=== PATIENT | female | born 1970 | race Caucasian/White ===

== ENCOUNTER → 2016-11-08 | Outpatient (CLI) | payer BC ==
--- NOTE | 2016-11-08 15:17 | WWHP ---
DATE OF SERVICE: 11/08/2016 CHIEF COMPLAINT: The patient is here for her routine gynecologic exam. HPI: This is a 46-year-old G0 with an LMP of 10/04/2016. The patient has been using the NuvaRing this past year and states she has been doing well with this. She forgot to take her NuvaRing out last week and left it in for 4 weeks. She just removed it yesterday. She is without gynecologic complaints. PAST MEDICAL HISTORY: Depression, acne and Raynaud's syndrome. MEDICATIONS: 1. Wellbutrin XR 200 mg b.i.d. 2. Nifedipine ER 30 mg daily. 3. Doxycycline 100 mg 1 daily. 4. NuvaRing as directed. 5. Multivitamin daily. 6. Calcium with vitamin D 1 t.i.d. 7. Vitamin B complex daily. 8. Clindamycin gel topically apply daily. 9. Klaron lotion 10% used daily. ALLERGIES: No known drug allergies. PAST SURGICAL HISTORY: Tonsillectomy at age 13. 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 She has no history of STDs. SOCIAL HISTORY: She denies tobacco, alcohol, and drug use. 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 Family history is unchanged from the 2016 H&P. REVIEW OF SYSTEMS: She has gained about 8 pounds over the last year. She denies respiratory, cardiac, or GI problems. PHYSICAL EXAM: Blood pressure 111/76. Height 5 feet 4 inches. Weight 159 pounds. Temperature 98.7, pulse 87. This a well-developed, well-nourished white female who is alert and oriented x3 in no acute distress. HEENT is within normal limits. NECK: Supple without mass or thyromegaly. CHEST AND LUNGS: Clear to auscultation. HEART: Regular rate and rhythm. Breasts are without mass or discharge. Axillary exam is negative for adenopathy. BACK: Negative for CVA tenderness. ABDOMEN: Soft, nontender, without palpable masses. PELVIC EXAM: Normal external genitalia. Cervix and vagina appear normal. There is no evidence of prolapse. The uterus is midposition, nongravid size and nontender. There are no palpable adnexal masses or tenderness. Rectal exam is negative for mass or tenderness and is negative for occult blood. EXTREMITIES: Nontender. IMPRESSION: A 46-year-old female with normal gynecologic exam doing well with the NuvaRing. PLAN: 1. Pap smear was deferred, since she had a normal one last year. 2. Self breast examination was discussed. 3. Mammogram was recommended and a slip was given to patient for this. 4. She will continue with the NuvaRing and insert her new ring today. 5. She will return in one year.
== END | disposition home or self-care (01) ==
LOC: WWCWWP 11:18
PROVIDERS: ATTEND Obstetrics & Gynecology
DX: Z53.9 Procedure and treatment not carried out, unspecified reason (principal)

== ENCOUNTER → 2017-10-23 | Outpatient (CLI) | payer BC ==
--- NOTE | 2017-10-24 14:13 | MM ---
Reason for exam: screening (asymptomatic). Last mammogram was performed 2 years and 1 month ago. History: Patient is nulliparous. Benign cyst aspiration of both breasts, 2013. Took hormonal contraceptives for 10 years. Physical Findings: A clinical breast exam by your physician is recommended on an annual basis and results should be correlated with mammographic findings. MG Screening Mammo w CAD Bilateral CC and MLO view(s) were taken. Prior study comparison: October 06, 2015, bilateral MG screening mammo w CAD. October 29, 2013, CAD bilateral diagnostic mammogram. The breast tissue is extremely dense which could obscure a lesion on mammography. No suspicious abnormality. No significant changes when compared with prior studies. ASSESSMENT: Negative, BI-RAD 1 RECOMMENDATION: Routine screening mammogram of both breasts in 1 year.
== END | disposition home or self-care (01) ==
LOC: RADMAMWWP 13:58
PROVIDERS: ATTEND Obstetrics & Gynecology
DX: Z12.31 Encounter for screening mammogram for malignant neoplasm of breast (principal)
CPT/HCPCS: 77067

== ENCOUNTER → 2017-11-21 | Outpatient (CLI) | payer BC ==
[2017-11-21 08:40] VITALS: BP 115/77; PULSE 72; TEMP 98.1; BMI 27.4
--- NOTE | 2017-11-21 09:51 | P.HPOB ---
History of Present Illness H&P Date: 11/21/17 Chief Complaint: The patient is here for her routine gynecologic exam. This is a 47-year-old G0 with an LMP of 08/29/2017. She uses the Nuva Ring for control. She states her peers have been quite light and scant and occasionally does not have periods. She denies hot flashes and is without gynecologic complaints. Review of Systems She denies respiratory, cardiac, or G.I. problems. Past Medical History Additional Past Medical History / Comment(s): History of Raynaud's syndrome and acne. History of Any Multi-Drug Resistant Organisms: None Reported Past Surgical History: Tonsillectomy Past Psychological History: Depression Smoking Status: Never smoker Medications and Allergies Home Medications Medication Instructions Recorded Confirmed Type Calcium Carbonate/Vitamin D3 1 each PO 11/15/17 History [Calcium 500-Vit D3 200 Tablet] Clindamycin Gel [Clindamycin 1 applic TOPICAL BID 11/15/17 History Phosphate] Doxycycline [Vibramycin] 50 mg PO Q12HR 11/15/17 11/15/17 History Etonogestrel/Ethinyl Estradiol 1 each VG 11/15/17 History [Nuvaring Vaginal Ring] Multivitamins, Thera [Multivitamin 1 tab PO DAILY 11/15/17 History (formulary)] NIFEdipine [NIFEdipine ER] 30 mg PO 11/15/17 History Vitamin B Complex 1 each PO 11/15/17 History buPROPion HCL [Wellbutrin SR] 200 mg PO BID 11/15/17 History Allergies Allergy/AdvReac Type Severity Reaction Status Date / Time No Known Allergies Allergy Verified 11/15/17 14:00 Exam - Vital Signs Vital signs: Vital Signs Temp Pulse BP 11/21/17 08:31 98.1 F 72 115/77 Intake and Output 11/20/17 11/21/17 11/21/17 22:59 06:59 14:59 Other: Weight 72.575 kg Height 5'4" BMI 27.5. This is a well-developed well-nourished white female who is alert and oriented times 3 in no acute distress. HEENT: Within normal limits. NECK: Supple without mass or thyromegaly. CHEST AND LUNGS: Clear to auscultation. HEART: Regular rate and rhythm. BREASTS: Are without mass or discharge. AXILLARY EXAM: Negative for adenopathy. BACK: Negative for CVA tenderness. ABDOMEN: Soft, nontender, without palpable masses. PELVIC EXAM: Normal external genitalia. Cervix and vagina appear normal. There is no unusual discharge. There is no evidence of prolapse. The uterus is midposition, nongravid size and nontender. There are no palpable adnexal masses or tenderness. RECTAL EXAM: negative for mass or tenderness and is negative for occult blood. EXTREMITIES: Nontender. IMPRESSION: 1. 47 year old female with normal gynecologic exam doing well with the NuvaRing. PLAN: 1. Pap smear was performed. 2. Self breast examination was discussed. 3. Mammogram was done last month and was negative. She will repeat this in one year. 4. Continue with Nuvaring. In one to 2 years we will consider checking and FSH during the nonhormonal week. 5. Osteoporosis prevention was discussed. 6. She will return one year.
--- NOTE | 2017-11-29 08:25 | P.PN ---
Progress Note - Text Progress Note Date: 11/29/17 The Pap smear from 11/21/2017 was negative. Endometrial cells were noted on the Pap smear report. I have notified the patient of the findings by phone. She is using the Nuvaring and has been amenorrhea since 08/2017. Her last ring was removed on 11/27/2017. Since the endometrial cells on the Pap smear would seem out of phase, she will undergo a pelvic ultrasound to rule out endometrial thickening. Endometrial thickening and amenorrhea could be caused by some type of outlet obstruction. She denies any type of abnormal bleeding. An order slip for a pelvic ultrasound was mailed to the patient.
== END ==
LOC: WWCWWP 08:26
PROVIDERS: ATTEND Obstetrics & Gynecology
DX: Z01.419 Encounter for gynecological examination (general) (routine) without abnormal findings (principal); Z53.9 Procedure and treatment not carried out, unspecified reason

== ENCOUNTER → 2019-02-05 | Outpatient (CLI) | payer BC ==
[2019-02-05 09:42] VITALS: BP 104/72; PULSE 82; RESP 16; TEMP 98.1; BMI 31.2
--- NOTE | 2019-02-05 10:27 | P.HPOB ---
History of Present Illness H&P Date: 02/05/19 Chief Complaint: The patient is here for her routine gynecologic exam. This is a 48-year-old G0 with an LMP of 01/28/2019. The patient is on Tri- Sprintec for control. She states her menses are regular every month and denies any intermenstrual bleeding. She is without gynecologic complaints. Review of Systems The patient has gained 20 pounds over the last year. She denies respiratory, cardiac, or G.I. problems. Past Medical History Additional Past Medical History / Comment(s): History of Raynaud's syndrome and acne. 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 She does have a long history of infertility in the past. 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 - Past Family History Grandfather Family Medical History: Diabetes Mellitus Additional Family Medical History / Comment(s): 1 grandfather had heart disease and one grandfather had diabetes. Medications and Allergies Home Medications Medication Instructions Recorded Confirmed Type Calcium Carbonate/Vitamin D3 1 each PO 11/15/17 History [Calcium 500-Vit D3 200 Tablet] Clindamycin Gel [Clindamycin 1 applic TOPICAL BID 11/15/17 02/05/19 History Phosphate] Doxycycline [Vibramycin] 50 mg PO Q12HR 11/15/17 02/05/19 History Multivitamins, Thera [Multivitamin 1 tab PO DAILY 11/15/17 History (formulary)] NIFEdipine [NIFEdipine ER] 30 mg PO 11/15/17 History Vitamin B Complex 1 each PO 11/15/17 History buPROPion HCL [Wellbutrin SR] 200 mg PO BID 11/15/17 02/05/19 History ARIPiprazole [Abilify] 2 mg PO DAILY 02/05/19 02/05/19 History Norgestimate-Ethinyl Estradiol 1 each PO 02/05/19 History [Tri-Sprintec Tablet] Vortioxetine Hydrobromide 20 mg PO 02/05/19 History [Trintellix] Allergies Allergy/AdvReac Type Severity Reaction Status Date / Time No Known Allergies Allergy Verified 02/05/19 09:48 Exam Vital Signs Temp Pulse Resp BP Pulse Ox 02/05/19 09:38 98.1 F 82 16 104/72 98 Intake and Output 02/04/19 02/05/19 02/05/19 22:59 06:59 14:59 Other: Weight 82.554 kg Height 5'4", weight 182 pounds, BMI 31.2. This is a well-developed well-nourished white female who is alert and oriented times 3 in no acute distress. HEENT: Within normal limits. NECK: Supple without mass or thyromegaly. CHEST AND LUNGS: Clear to auscultation. HEART: Regular rate and rhythm. BREASTS: there is a palpable mass in the left breast under the upper outer aspect of the left areola. This measures approximately 1.5 cm and is somewhat firm and slightly tender. There are no other palpable breast masses. There is no nipple discharge. AXILLARY EXAM: Negative for adenopathy. BACK: Negative for CVA tenderness. ABDOMEN: Soft, nontender, without palpable masses. PELVIC EXAM: Normal external genitalia. Cervix and vagina appear normal. There is no unusual discharge. There is no evidence of prolapse. The uterus is midposition, nongravid size and nontender. There are no palpable adnexal masses or tenderness. RECTAL EXAM: negative for mass or tenderness and is negative for occult blood. EXTREMITIES: Nontender. IMPRESSION: 1. 48 year old female doing well on oral contraception for control. 2. Left breast mass palpable on exam today which was not noticed by the patient. 3. Otherwise normal gynecologic exam. PLAN: 1. Pap smear was deferred since she had a negative one on 11/21/2017. 2. Self breast awareness was discussed with the patient. 3. Diagnostic mammogram with left breast ultrasound has been scheduled for the near future. 4. She understands there may be suspicious findings with the breast imaging that may result in the discontinuation of the control pills. 5. If she is allowed to continue on the control pills, plan on checking a blood FSH and estradiol at the end of her inactive pill week to see if she is menopausal so we can determine if she needs to continue control. 6.She was advised to return in one year for her annual well woman exam.
== END | disposition home or self-care (01) ==
LOC: WWCWWP 09:13
PROVIDERS: ATTEND Obstetrics & Gynecology
DX: Z53.9 Procedure and treatment not carried out, unspecified reason (principal)

== ENCOUNTER → 2019-02-28 | Outpatient (CLI) | payer BC ==
--- NOTE | 2019-03-01 09:15 | MM ---
Reason for exam: clinical finding. Last mammogram was performed 1 year and 4 months ago. History: Patient is nulliparous. Benign cyst aspiration of both breasts, 2013. Taking hormonal contraceptives for 13 years beginning at age 45. Indicated problem(s): lump or thickening in the left breast. Physical Findings: Nurse Summary: 1.5cm nodule in the left breast at 2 o'clock (nurse mj). MG Diagnostic Mammo w CAD PABLO Bilateral CC and MLO view(s) were taken. Prior study comparison: October 23, 2017, bilateral MG screening mammo w CAD. October 06, 2015, bilateral MG screening mammo w CAD. The breast tissue is heterogeneously dense. This may lower the sensitivity of mammography. There are benign appearing round oval circumscribed masses that wax and wane over multiple prior exams. There is a change in size of the upper outer quadrant masses and therefore ultrasound of the upper outer quadrant will be done bilaterally to include the left palpable abnormality. These results were verbally communicated with the patient and result sheet given to the patient on 02/28/19. ASSESSMENT: Incomplete: need additional imaging evaluation, BI-RAD 0 RECOMMENDATION: Ultrasound of both breasts. right upper outer quadrant, left upper outer quadrant
--- NOTE | 2019-03-01 09:19 | USB ---
Reason for exam: additional evaluation requested from abnormal screening. History: Patient is nulliparous. Benign cyst aspiration of both breasts, 2013. Taking hormonal contraceptives for 13 years beginning at age 45. US Breast Limited BILAT Right limited breast ultrasound including focal area of concern, retroareolar and axilla demonstrates a 3.7 x 1.1 x 3.1cm cystic cluster at 9 o'clock. Left limited breast ultrasound including focal area of concern, retroareolar and axilla demonstrates a 3.3 x 1.2 x 3.1cm cystic cluster at 2 o'clock, a 1.2 x 0.9 x 1.4cm cystic lesion at 3 o'clock BB and a 1.7 x 0.9 x 1.2cm mixed, vascular lesion at the posterior nipple, palpable, new, possibly complicated cyst or complex cyst, biopsy recommended. These results were verbally communicated with the patient and result sheet given to the patient on 02/28/19. ASSESSMENT: Suspicious, BI-RAD 4 RECOMMENDATION: Aspiration of the left breast. (or) Ultrasound core biopsy of the left breast. Per patient, wants to wait to schedule biopsy/surgical consult at this time, will talk to Dr. Robison first. PRELIMINARY REPORT CALLED AND FAXED TO DR. ROBISON ON 03/01/19.
== END | disposition home or self-care (01) ==
LOC: RADMAMWWP 13:36
PROVIDERS: ATTEND Obstetrics & Gynecology
DX: R92.8 Other abnormal and inconclusive findings on diagnostic imaging of breast (principal)
CPT/HCPCS: 36415; 77066; 82670; 83001

== ENCOUNTER → 2019-04-29 | Day surgery (SDC) | payer BC ==
[2019-04-29 12:54] VITALS: BMI 30.9
[2019-04-29 14:27] VITALS: BP 110/75; PULSE 72; RESP 16; TEMP 98.5
--- NOTE | 2019-04-29 16:03 | USB ---
EXAMINATION TYPE: US biopsy breast VAD LT, MG diagnostic mammo LT wo CAD DATE OF EXAM: 04/29/2019 CLINICAL HISTORY: R92.8 Abn Mammo. TECHNIQUE: Ultrasound guided core biopsy of left breast. COMPARISON: Prior left breast ultrasound FINDINGS: The procedure of ultrasound guided core biopsy was explained to the patient. Benefits, alt ernatives, and risks were discussed. An informed consent was then obtained. Preprocedural timeout w as performed. The patient was placed in supine positioning for imaging and for the procedure. The overlying skin w as prepped and draped in usual sterile fashion. Lidocaine buffered with bicarbonate was used as anes thetic into the skin and subcutaneous tissue up to area of concern in the left breast at the 3:00 pos ition. Under ultrasound guidance, a 12-gauge vacuum assisted biopsy gun device was used to obtain 4 core [address]es after aspiration attempt within 18-gauge spinal needle was unsuccessful. Following this, a coil -shaped biopsy marker was left at the site of biopsy. The patient tolerated the procedure well without any immediate complication. The patient was kept in the radiology department for short stay after the procedure and then discharged home in stable condi tion. Postprocedural biopsy marker appears appropriately placed. IMPRESSION: Successful, uncomplicated ultrasound guided core biopsy of a palpable mass at the 3:00 po sition measuring approximately 1.1 cm, full pathology results to follow. Of note the mass collapsed o n biopsy and appears to represent a hemorrhagic/complicated cyst.
== END | disposition home or self-care (01) ==
LOC: RADUSWWP 12:22
PROVIDERS: ATTEND Obstetrics & Gynecology
DX: N60.82 Other benign mammary dysplasias of left breast (principal); L90.5 Scar conditions and fibrosis of skin
CPT/HCPCS: 88305; 77065; 19083; A4648; J2001

== ENCOUNTER → 2024-03-13 | Outpatient (CLI) | payer BC ==
--- NOTE | 2024-03-21 21:19 | MM ---
Reason for Exam: Screening (asymptomatic). Last mammogram was performed 5 year(s) and 1 month(s) ago. Patient History: Menarche at age 14. Patient has no children. Postmenopausal. Hormonal Contraceptives, starting at age 45. 2013, Bilateral Benign Cyst Aspiration. 04/29/2019, Benign Core Biopsy on the left side. Risk Values: Angie 5 year model risk: 1.4%. NCI Lifetime model risk: 11.0%. Prior Study Comparison: 10/23/2017 Bilateral Screening Mammogram, [facility]. 02/28/2019 Bilateral Diagnostic Mammogram, [facility]. 04/29/2019 Left Diagnostic Mammogram, [facility]. Tissue Density: The breasts are heterogeneously dense, which may obscure small masses. Findings: Analyzed By CAD. Fluctuating bilateral chronic nodularity in an overall benign pattern. Microclip left breast from prior biopsy. There is no suspicious group of microcalcifications or new suspicious mass in either breast. Overall Assessment: Benign, BI-RAD 2 Management: Screening Mammogram of both breasts in 1 year. . Patient should continue monthly self-breast exams. A clinical breast exam by your physician is recommended on an annual basis. This exam should not preclude additional follow-up of suspicious palpable abnormalities. Note on Angie scores and lifetime risk: 1. A Angie score greater than 3% is considered moderate risk. If this is the case, consider specialist referral to assess eligibility for a risk reducing agent. 2. If overall lifetime risk for the development of breast cancer is 20% or higher, the patient may qualify for future screening with alternating mammogram and breast MRI. Electronically signed and approved by: Getachew Guaman M.D. Radiologist
== END | disposition home or self-care (01) ==
LOC: RADMAMWWP 08:36
PROVIDERS: ATTEND Family Medicine
DX: Z12.31 Encounter for screening mammogram for malignant neoplasm of breast (principal); R92.333 Mammographic heterogeneous density, bilateral breasts; Z78.0 Asymptomatic menopausal state
CPT/HCPCS: 77067

== ENCOUNTER → 2024-05-08 | Outpatient (CLI) | payer BC ==
[2024-05-08 08:13] VITALS: BP 116/78; PULSE 71; RESP 16; TEMP 98.2
--- NOTE | 2024-05-08 08:49 | P.HPOB ---
History of Present Illness H&P Date: 05/08/24 Chief Complaint: The patient is here for her routine gynecologic exam. This is a 54-year-old G0 with an LMP of 2021. The patient is here to reestablish with this office. She was last seen in 2019. She states she stopped control pills several years ago and did have menstrual periods without control pills until 2021. She denies significant hot flashes but does get warm at times. She is without gynecologic complaints. She did have a benign mammogram on 03/13/2024. Review of Systems She has gained about 14 pounds over the past 5 years. She denies respiratory, cardiac, or GI problems. Past Medical History Additional Past Medical History / Comment(s): History of Raynaud's syndrome and acne. 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 She does have a long history of infertility in the past. 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 - Past Family History Grandfather Family Medical History: Diabetes Mellitus Additional Family Medical History / Comment(s): 1 grandfather had heart disease and one grandfather had diabetes. Mother Family Medical History: Dementia Additional Family Medical History / Comment(s): Parkinson's disease Father Family Medical History: Unable to Obtain Medications and Allergies Home Medications Medication Instructions Recorded Confirmed Type Calcium Carbonate/Vitamin D3 1 each PO DAILY 11/15/17 05/08/24 History [Calcium 500-Vit D3 200 Tablet] Clindamycin Gel [Clindamycin 1 applic TOPICAL BID 11/15/17 05/08/24 History Phosphate] Doxycycline [Vibramycin] 100 mg PO DAILY 11/15/17 05/08/24 History Multivitamins, Thera [Multivitamin 1 tab PO DAILY 11/15/17 05/08/24 History (formulary)] NIFEdipine [NIFEdipine ER] 30 mg PO HS 11/15/17 05/08/24 History Vitamin B Complex 1 each PO DAILY 11/15/17 05/08/24 History buPROPion HCL [Wellbutrin SR] 200 mg PO BID 11/15/17 05/08/24 History Vortioxetine Hydrobromide 20 mg PO DAILY 02/05/19 05/08/24 History [Trintellix] Allergies Allergy/AdvReac Type Severity Reaction Status Date / Time No Known Allergies Allergy Verified 05/08/24 08:09 Exam Vital Signs Temp Pulse Resp BP Pulse Ox 05/08/24 08:10 98.2 F 71 16 116/78 98 Intake and Output 05/07/24 05/08/24 05/08/24 22:59 06:59 14:59 Other: Weight 88.904 kg Height 5 feet 4 inches, weight 196 pounds, BMI 33.6. This is a well-developed well-nourished white female who is alert and oriented times 3 in no acute distress. HEENT: Within normal limits. NECK: Supple without mass or thyromegaly. CHEST AND LUNGS: Clear to auscultation. HEART: Regular rate and rhythm. BREASTS: Are without mass or discharge. AXILLARY EXAM: Negative for adenopathy. BACK: Negative for CVA tenderness. ABDOMEN: Soft, nontender, without palpable masses. PELVIC EXAM: Normal external genitalia with minimal atrophy. Cervix and vagina appear normal with minimal atrophy. There is no unusual discharge. There is no evidence of prolapse. The uterus is midposition, nongravid size and nontender. There are no palpable adnexal masses or tenderness. RECTAL EXAM: Rectovaginal exam is negative for mass or tenderness and is negative for occult blood. EXTREMITIES: Nontender. IMPRESSION: 1. 54-year-old menopausal female with normal gynecologic exam. PLAN: 1. Pap smear cotest was performed. 2. Self breast awareness was discussed with the patient. We have also discussed symptoms associated with inflammatory breast cancer. 3. Screening mammogram was done on 03/13/2024 and was benign. She will repeat this after 1 year. 4. Osteoporosis prevention was discussed. I have stressed the importance of adequate calcium, vitamin D and regular exercise. Recommended amounts of calcium and vitamin D were also discussed. 5. Colorectal cancer screening was discussed. I have recommended doing this kind of screening which could include colonoscopy or Cologuard testing. She will discuss this further with her PCP. 6. She was advised to return in one year for her annual well woman exam.
== END ==
LOC: WWCWWP 07:58
PROVIDERS: ATTEND Obstetrics & Gynecology
DX: Z01.419 Encounter for gynecological examination (general) (routine) without abnormal findings (principal); Z78.0 Asymptomatic menopausal state

== ENCOUNTER 2024-12-13 19:20 | Emergency (ER) | payer BC ==
[2024-12-13] MEDS: ONDANSETRON 4 MG/2 ML VIAL IVP STA (19:58)
[2024-12-13] MEDS: MORPHINE SULFATE 4 MG/ML SYRINGE IVP STA (19:58)
--- NOTE | 2024-12-13 20:17 | XR ---
EXAMINATION TYPE: XR ankle limited RT DATE OF EXAM: 12/13/2024 8:07 PM COMPARISON: None. CLINICAL INDICATION: Female, 54 years old with history of fall, deformity, pain TECHNIQUE: 2 view(s) obtained. FINDINGS: Distal medial malleolar fractures present. There is fracture of the distal metadiaphyseal fibula. Pos terior tibial fracture appears to be present. There is complete dislocation of the tibia from the brianda us. IMPRESSION: 1. Trimalleolar fracture. 2. Dislocation of the talus laterally in relation of the distal tibia [facility], , 12/13/2024 8:14 PM
[2024-12-13 21:27] VITALS: RESP 18
[2024-12-13] MEDS: PROPOFOL 10 MG/ML 20 ML VIAL IV ONE ×2 (21:27→22:03)
--- NOTE | 2024-12-13 22:04 | XR ---
EXAMINATION TYPE: XR ankle limited RT DATE OF EXAM: 12/13/2024 9:55 PM COMPARISON: Earlier exam CLINICAL INDICATION: Female, 54 years old with history of post reduction, pain TECHNIQUE: 2 view(s) obtained. FINDINGS: Images obtained through a fiberglass splint. There is been significant reduction of the dislocated ta marixa. Medial and lateral malleoli have been largely reduced. There is some slight diastases of the pos terior tibial avulsion. There may be some mild residual lateral subluxation of the talus in relation to the tibia. IMPRESSION: 1. Improved alignment and positioning of trimalleolar fracture right ankle [facility], , 12/13/2024 10:02 PM
--- NOTE | 2024-12-13 22:29 | ED ---
Lower Extremity Injury HPI - General Chief Complaint: Extremity Injury, Lower Stated Complaint: R Ankle Injury Time Seen by Provider: 12/13/24 19:35 Source: family Mode of arrival: wheelchair Limitations: no limitations - History of Present Illness Initial Comments: 54-year-old female with past medical history of Raynaud's who presents to the emergency department after a fall. States she was going out into her garage when she tripped down the step. She twisted her right ankle and had significant deformity. Patient brought into the emergency department immediately after injury. She denies any numbness or tingling. States the pain is minimal when not moving it. Denies any other injuries to include head injury. Denies any neck or back pain. She does not take any blood thinners. She did not take anything for pain before coming in. No other alleviating, precipitating or modifying factors - Related Data Home Medications Medication Instructions Recorded Confirmed Calcium Carbonate/Vitamin D3 1 each PO DAILY 11/15/17 05/08/24 [Calcium 500-Vit D3 200 Tablet] Clindamycin Gel [Clindamycin 1 applic TOPICAL BID 11/15/17 05/08/24 Phosphate] Doxycycline [Vibramycin] 100 mg PO DAILY 11/15/17 05/08/24 Multivitamins, Thera [Multivitamin 1 tab PO DAILY 11/15/17 05/08/24 (formulary)] NIFEdipine [NIFEdipine ER] 30 mg PO HS 11/15/17 05/08/24 Vitamin B Complex 1 each PO DAILY 11/15/17 05/08/24 buPROPion HCL [Wellbutrin SR] 200 mg PO BID 11/15/17 05/08/24 Vortioxetine Hydrobromide 20 mg PO DAILY 02/05/19 05/08/24 [Trintellix] Allergies Allergy/AdvReac Type Severity Reaction Status Date / Time No Known Allergies Allergy Verified 12/13/24 19:29 Review of Systems ROS Statement: Those systems with pertinent positive or pertinent negative responses have been documented in the HPI. ROS Other: All systems not noted in ROS Statement are negative. Past Medical History Additional Past Medical History / Comment(s): History of Raynaud's syndrome and acne. 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 She does have a long history of infertility in the past. History of Any Multi-Drug Resistant Organisms: None Reported Past Surgical History: Tonsillectomy Additional Past Surgical History / Comment(s): cyst aspirations bilateral breasts Past Anesthesia/Blood Transfusion Reactions: No Reported Reaction Past Psychological History: Depression Smoking Status: Never smoker Past Alcohol Use History: None Reported Past Drug Use History: None Reported - Past Family History Mother Family Medical History: Dementia Additional Family Medical History / Comment(s): Parkinson's disease Father Family Medical History: Unable to Obtain Grandfather Family Medical History: Diabetes Mellitus Additional Family Medical History / Comment(s): 1 grandfather had heart disease and one grandfather had diabetes. General Exam Limitations: no limitations General appearance: alert, in no apparent distress Head exam: Present: atraumatic, normocephalic, normal inspection Eye exam: Present: normal appearance, PERRL, EOMI. Absent: scleral icterus, conjunctival injection, periorbital swelling ENT exam: Present: normal exam, mucous membranes moist Neck exam: Present: normal inspection. Absent: tenderness, meningismus, lymphadenopathy Respiratory exam: Present: normal lung sounds bilaterally. Absent: respiratory distress, wheezes, rales, rhonchi, stridor Cardiovascular Exam: Present: regular rate, normal rhythm, normal heart sounds. Absent: systolic murmur, diastolic murmur, rubs, gallop, clicks GI/Abdominal exam: Present: soft, normal bowel sounds. Absent: distended, tenderness, guarding, rebound, rigid Extremities exam: Present: tenderness, joint swelling, other (Obvious deformity to the right ankle. There is some abrasion to the medial aspect however no laceration. Does have 2+ DP and PT pulses with normal cap refill). Absent: pedal edema, calf tenderness Back exam: Present: normal inspection Neurological exam: Present: alert, oriented X3, CN II-XII intact Psychiatric exam: Present: normal affect, normal mood Skin exam: Present: warm, dry, intact, normal color. Absent: rash Course Vital Signs 12/13/24 12/13/24 12/13/24 19:29 19:47 20:58 Temperature 98.2 F 98.3 F 98.6 F Pulse Rate 75 74 71 Respiratory 18 18 20 Rate Blood Pressure 138/83 144/87 140/89 O2 Sat by Pulse 98 97 Oximetry 12/13/24 21:22 Temperature 98.5 F Pulse Rate 63 Respiratory 18 Rate Blood Pressure 148/85 O2 Sat by Pulse 97 Oximetry Procedures - Orthopedic Joint Reduction Joint #1 Consent Obtained: written consent Side: right Joint Reduction Location: ankle Analgesia: procedural sedation Amount of Anesthetic Used (mLs): 280 Technique Used: traction/counter-traction, direct manipulation Post-Reduction Neuro Exam: intact Post-Reduction Vascular Exam: intact Post Reduction X-Ray Obtained: Yes Post Reduction X-Ray Results: reduced Splint Applied: Yes Patient Tolerated Procedure: well, no complications - Orthopedic Splinting/Casting Injury #1 Side: right Lower Extremity Immobilizer: posterior splint, stirrup splint, Aníbal wrap, synthetic pre-padded splint - Procedural Sedation *Procedural Sedation Start Time: 21:27 *Procedural Sedation Stop Time: 21:56 *Risks,benefits, and alternative therapies discussed?: Yes *Patient indicates understanding of risk/benefit discussion?: Yes *Indications: fracture/dislocation reduction *Previous Adverse Reaction to Anesthesia/Sedation?: No * Testing Complete?: No Reason Test Not Complete:: Post-menopausal *ASA Class: I *Mallampati Airway Score: 1 *Time of Last PO Intake: 16:30 Preparation: hand stitcher applied, pulse oximeter, capnometry used, supplemental O2 applied, reversal agents at bedside, suction/airway equipment at bedside IV Propofol Dose (mgs): 280 Complications: none Patient Tolerated Procedure: well, no complications Medical Decision Making - Medical Decision Making Was pt. sent in by a medical professional or institution ([facility] Matos, H[employer]ER, urgent care, hospital, or [place] health care facility...) When possible be specific @ -No Did you speak to anyone other than the patient for history (EMS, parent, family, police, friend...)? What history was obtained from this source @ -Spoke with her for history Did you review nursing and triage notes (agree or disagree)? Why? @ -I reviewed and agree with nursing and triage notes Were old charts reviewed (outside hosp., previous admission, EMS record, old EKG, old radiological studies, urgent care reports/EKG's, [place] health care facility records)? Report findings @ -No old charts were reviewed Differential Diagnosis (chest pain, altered mental status, abdominal pain women, abdominal pain men, vaginal bleeding, weakness, fever, dyspnea, syncope, headache, dizziness, GI bleed, back pain, seizure, CVA, palpatations, mental health, musculoskeletal)? @ -Differential Musculoskeletal Muscular strain, contusion, ligament sprain, fracture, arthritis, septic arthritis, bursitis, cellulitis, muscle spasm, nerve compression, DVT, arterial occlusion, herpes zoster, electrolyte abnormality, tumor.... This is not meant to be in all inclusive list EKG interpreted by me (3pts min.). @ -Not done X-rays interpreted by me (1pt min.). @ -Yes and demonstrates trimalleolar fracture with dislocation of the talus CT interpreted by me (1pt min.). @ -None done U/S interpreted by me (1pt. min.). @ -None done What testing was considered but not performed or refused? (CT, X-rays, U/S, labs)? Why? @ -CT was considered however can be completed at receiving facility to not delay transfer What meds were considered but not given or refused? Why? @ -None Did you discuss the management of the patient with other professionals (professionals i.e. , PA, H[employer]CHO[employer] TEACHER, lab, RT, psych nurse, social studies teacher, wire taper, teacher, transit police officer, case repairer)? Give summary @ -Spoke with Dr. Sanchez who recommends transfer due to significant injury Was smoking cessation discussed for >3mins.? @ -No Was critical care preformed (if so, how long)? @ -No Were there social determinants of health that impacted care today? How? (Homeles sness, low income, unemployed, alcoholism, drug addiction, transportation, low edu. Level, literacy, decrease access to med. care, custodial, rehab)? @ -No Was there de-escalation of care discussed even if they declined (Discuss DNR or withdrawal of care, Hospice)? DNR status @ -No What co-morbidities impacted this encounter? (DM, HTN, Smoking, COPD, CAD, Cancer, CVA, ARF, Chemo, Hep., AIDS, mental health diagnosis, sleep apnea, morbid obesity)? @ -None Was patient admitted / discharged? Hospital course, mention meds given and route, prescriptions, significant lab abnormalities, going to OR and other pertinent info. @ -Upon arrival patient seen and evaluated in trauma 4. Thorough history and physical exam was performed. IV was established. She was given 4 mg of morphine and 4 mg of Zofran for pain and nausea. Portable x-ray was performed which did demonstrate trimalleolar fracture with dislocation of the talus. I did discuss the case with Dr. Sanchez who refused the case due to severity of injury. Recommended transfer to facility with orthopedic trauma surgeons. [facility] as she is familiar with a doctor Sword there. I did perform procedural sedation on the patient using propofol. Patient is placed in a splint. X-ray is performed which demonstrates improved alignment of the joint. I did call and speak with Dr. Dean and Dr. Lucero who do accept the transfer the patient. She will go by EMS. Patient remained neurovascularly intact and was transferred in stable condition Undiagnosed new problem with uncertain prognosis? @ -No Drug Therapy requiring intensive monitoring for toxicity (Heparin, Nitro, Insulin, Cardizem)? @ -No Were any procedures done? @ -Procedural sedation with ankle fracture reduction, splint Diagnosis/symptom? @ -Acute fall, acute trimalleolar fracture dislocation Acute, or Chronic, or Acute on Chronic? @ -Acute Uncomplicated (without systemic symptoms) or Complicated (systemic symptoms)? @ -complicated Side effects of treatment? @ -Sedation Exacerbation, Progression, or Severe Exacerbation? @ -No Poses a threat to life or bodily function? How? (Chest pain, USA, AR, pneumonia, PE, COPD, DKA, ARF, appy, cholecystitis, CVA, Diverticulitis, Homicidal, Suicidal, threat to staff... and all critical care pts) @ -No Disposition Clinical Impression: Trimalleolar fracture, Ankle dislocation, Fall Disposition: OTHER INSTITUTION NOT DEFINED Condition: Stable Is patient prescribed a controlled substance at d/c from ED?: No Referrals: Evan Hughes DO [Primary Care Provider] - 1-2 days Time of Disposition: 22:29 - Out of Hospital Transfer - Req. Specs Out of Hospital Transfer - Requested Specifics: Other [facility] ([facility]
[2024-12-13 23:45] VITALS: BP 124/75; PULSE 69; TEMP 98.1
== END 2024-12-13 23:47 | disposition other institution (70) ==
LOC: EC 19:20
DX: S82.851A Displaced trimalleolar fracture of right lower leg, initial encounter for closed fracture (principal); S93.04XA Dislocation of right ankle joint, initial encounter; I73.00 Raynaud's syndrome without gangrene; W18.40XA Slipping, tripping and stumbling without falling, unspecified, initial encounter
CPT/HCPCS: 73600; 99284; 27840; 96374; 96375; 99152; 99153; J2270; J2405; J2704